=== PATIENT | female | born 1990 | race Caucasian/White ===

== ENCOUNTER → 2016-11-12 | Outpatient (CLI) | payer OTHER ==
[~2016-11-12] MED LIST: FLUVIRIN 245 MCG/010 IM; HUMIRA40 MG/0.8 SC; NAPROSYN500 MG PO; ORTHO TRI-CYCL1 EACH PO
== END | disposition home or self-care (01) ==
LOC: NUC 11-01 13:00
DX: K80.20 Calculus of gallbladder without cholecystitis without obstruction (principal); R93.2 Abnormal findings on diagnostic imaging of liver and biliary tract
CPT/HCPCS: 78226; A9537; J2270

== ENCOUNTER 2016-12-17 15:08 | Emergency (ER) | payer OTHER ==
[~2016-12-17] VITALS: Ht 165.1 cm; Wt 77.7 kg
[2016-12-17 17:10] LABS: HEMATOCRIT 43.7 % (36.0-46.0); MCH 30.3 PG (29.0-34.0); MCHC 34.1 G/DL (30.0-36.0); MCV 88.8 FL (83-99); MEAN PLAT.VOLUME 9.4 uM^3 (9.5-12.4); PLATELET COUNT 239 K/uL (156-360); RBC DIS.WIDTH-CV 12.1 % (11.8-14.6); RBC DIS.WIDTH-SD 39.8 % (39-53); RED BLOOD COUNT 4.92 M/uL (3.80-5.20); WHITE BLOOD COUNT 11.1 K/uL (4.1-10.2)
[2016-12-17 17:17] LABS: CHLORIDE 105 mEq/L (99-109); POTASSIUM 3.9 mEq/L (3.7-5.4); SODIUM 141 mEq/L (136-147)
[2016-12-17 17:19] LABS: GLUCOSE 108 mg/dL (70-99)
[2016-12-17 17:20] LABS: ANION GAP 9 MEQ/L (2-14)
[2016-12-17 17:21] LABS: TOTAL BILIRUBIN 2.2 mg/dL (0.0-1.0)
[2016-12-17 17:22] LABS: ALKALINE PHOSPHATASE 77 IU/L (3-129)
[2016-12-17 17:23] LABS: GFR ESTIMATE (CALCULATED) > 59 mL/min/
[2016-12-17 17:24] LABS: UREA NITROGEN (BUN) 6 mg/dL (9-23)
[2016-12-17 17:32] LABS: QUANTITATIVE HCG < 4.0 MIU/ML
[2016-12-17 18:34] LABS: ADD MIUA? YES; BILIRUBIN NEGATIVE; BLOOD SMALL; COLOR AMBER ((YELLOW)); GLUCOSE (STRIP) NEGATIVE; KETONES NEGATIVE; LEUKOCYTES NEGATIVE; NITRITE NEGATIVE; PROTEIN (STRIP) NEGATIVE
[2016-12-17 18:39] LABS: BACTERIA RARE /HPF; EPITHELIAL CELLS RARE /HPF; MUCUS TRACE /LPF; RED BLOOD CELLS 0-5 /HPF (0-5); UCUL ADDED? NO; WHITE BLOOD CELLS 0-5 /HPF (0-5)
[2016-12-17] MEDS ORDERED: PERCOCET 5/31 TABLET PO (19:29)
[2016-12-17 19:57] VITALS: BP 125/78
== END 2016-12-17 19:58 | disposition home or self-care (01) ==
LOC: EME 15:08
DX: K80.20 Calculus of gallbladder without cholecystitis without obstruction (principal)
CPT/HCPCS: 76705; 80053; 81003; 84702; 85027; 99281; 99284; J2270; J2405

== ENCOUNTER 2016-12-24 05:40 | Day surgery (SDC) | payer OTHER ==
[~2016-12-24] VITALS: Ht 165.1 cm; Wt 76.0 kg
[~2016-12-24 05:40] MED LIST changes: +ENBREL50 MG/1 ML SC; +MOTRIN400 MG PO; +ORTHO TRI-CY1 TABLE1 PO; +PERCOCET 5/31 TABLET PO
[2016-12-24 06:36] VITALS: BP 108/77
[2016-12-24 07:52] LABS: METH RESISTANT S AUREUS PCR NEGATIVE (NEGATIVE)
[2016-12-24 07:53] LABS: PROBE CHECK PASS; SPECIMEN PROCESSING CONTROL PASS
[2016-12-24] MEDS ORDERED: NORCO 5/3251 TABLET PO (10:15)
[2016-12-24 10:47] VITALS: BP 110/71
[2016-12-24 13:45] VITALS: BP 122/84
[2016-12-24 14:05] VITALS: BP 122/77
== END 2016-12-24 14:10 | disposition home or self-care (01) ==
LOC: SDC 05:40
PROVIDERS: Surgery
DX: K80.10 Calculus of gallbladder with chronic cholecystitis without obstruction (principal); L40.50 Arthropathic psoriasis, unspecified; E66.3 Overweight; Z68.29 Body mass index [BMI] 29.0-29.9, adult; Z79.899 Other long term (current) drug therapy
CPT/HCPCS: 87641; 88304; C1725; C1769; C1894; J1100; J1170; J1885; J2250; J2270; J2405; J2710; J2765; J3010; S0020